=== PATIENT | male | born 1965 | race Caucasian/White ===

== ENCOUNTER 2023-08-22 10:39 | Emergency (ER) | payer OTHER, SELFPAY ==
[2023-08-22 10:52] VITALS: BP 139/68; PULSE 60; RESP 16; TEMP 36.3; O2SAT 100
--- NOTE | 2023-08-22 11:40 | ED.GENADULT ---
HPI - General Adult General Chief complaint: Abdominal Pain Stated complaint: Abdominal Irritation Source: patient, RN notes reviewed and old records reviewed Mode of arrival: ambulatory Limitations: no limitations History of Present Illness HPI narrative: 57-year-old male that presents to [facility] with complaint possible inguinal hernia. Patient states about 1.5 weeks ago was lifting a propane tanks and noted a bulge on right inguinal area. Patient states having slight discomfort at times, but denies pain. patient denies any other complaints at this time. MD complaint: hernia Onset (ago): week(s) (1.5) Location: abdomen Radiation: non-radiation Related Data Home Medications Medication Instructions Recorded Confirmed No Home Medications 08/22/23 08/22/23 Allergies Allergy/AdvReac Type Severity Reaction Status Date / Time No Known Allergies Allergy Verified 08/22/23 11:01 Review of Systems Review of Systems: All systems reviewed & are unremarkable except as noted in HPI and below Constitutional: Constitutional: Reports no additional constitutional complaints Eyes: Eyes: Reports no additional eye complaints ENT: Reports system reviewed and no additional complaints, except as documented Cardiovascular: Cardiovascular: Reports no additional cardiovascular complaints Respiratory: Respiratory: Reports no additional respiratory complaints Gastrointestinal: Gastrointestinal: Reports abdominal pain Comments: lower right Genitourinary: Genitourinary: Reports no additional male genitourinary complaints, Denies oliguria, Denies penile discharge and Denies testicular pain Integumentary/Breasts: Skin/Breast: Denies erythema, Denies rash and Denies skin ulcer Neurologic: Reports system reviewed and no additional complaints, except as documented PMFSH Past Medical History Medical History Lipoma of skin and subcutaneous tissue of trunk Mass of left chest wall Social History Social History Smoking status: Never smoker Alcohol intake: current Comments At the time of my signature, I reviewed and agree with the nursing past medical, surgical, social, and family history. There is no relevant family history pertinent to the patient complaint. Exam Const: General: cooperative, healthy appearing, no acute distress and well nourished Nutritional Appearance: well nourished Orientation/consciousness: patient oriented x3 Limitations: no limitations HENMT: Head: normal to inspection and normocephalic Ears: external ears normal, TM's normal bilaterally, mastoids normal and Abnormal EAC present Face/Nose/Sinus: normal facial exam Face and sinus: normal facial exam Mouth: Yes Normal oral and palatal mucosa present, Yes oropharynx normal and Yes moist mucous membranes Throat: posterior oropharynx normal, tonsils normal, uvula midline and no uvular edema Eyes: General: appearance normal, both eyes and all related structures Sclera: sclerae normal Pupils: Equal, round and reactive pupils present Resp: Effort & Inspection: normal respiratory effort, able to speak in complete sentences, no audible wheezes, no cough, no respiratory distress and no retractions Auscultation: clear to auscultation bilaterally, no crackles, no rales, no rhonchi and no wheezes Cardio: Rate: regular rate Rhythm: regular rhythm GI: GI Palp: Yes Soft to palpation, No Tenderness to palpation present (GI), No Guarding due to palpation present (GI), No Rigid due to palpation, Yes Hernia present other ( right inguinal, reducible, nontender, no erythema) 3-10 cm and No Rebound tenderness present Auscultation: normal bowel sounds Skin: General skin exam: normal color and no rashes or lesions noted Neuro: General: patient oriented x3 Cranial nerves: Yes Equal, round and reactive pupils present Psych: Appearance: grossly
== END 2023-08-22 11:50 | disposition home or self-care (01) ==
PROVIDERS: Emergency Provider Registered Nurse; PCP Family Medicine
DX: K40.90 Unilateral inguinal hernia, without obstruction or gangrene, not specified as recurrent (principal)
CPT/HCPCS: 99211; G0463

== ENCOUNTER 2023-09-29 07:58 | Outpatient (CLI) | payer OTHER, SELFPAY | END 2023-09-29 07:59 | disposition home or self-care (01) | LOC: ANHSURGERY 08:01 | PROVIDERS: PCP Family Medicine; Visit Provider Surgery | DX: Z01.818 Encounter for other preprocedural examination (principal); K40.90 Unilateral inguinal hernia, without obstruction or gangrene, not specified as recurrent | CPT/HCPCS: 36415; 86850; 86900; 86901 ==

== ENCOUNTER 2023-10-03 03:23 | Day surgery (SDC) | payer OTHER, SELFPAY ==
[2023-09-23 10:26] VITALS: BMI 22.8
--- NOTE | 2023-09-24 12:03 | SUR.PREOP ---
Report to the Outpatient Waiting Room, entrance under the green pavilion located off [facility], at time 8:30 on date 10/03/23. Planned Procedure Time: 10:30. Time changes happen often and if your time is changed the preop area will call you the afternoon before. - You and your visitor will be asked to self-screen and do not enter if you have any COVID symptoms. - A mask is optional within the hospital at this time. Patients may have clear liquids (water, carbonated beverages, clear teas, apple juice) until 3 hours prior to surgery (7:30) with a maximum of 20 ounces. - No food from midnight until time of surgery Take the following medications with a SIP of water the morning of surgery: N/A DO NOT STOP ANY OF YOUR OTHER PRESCRIPTION MEDICATIONS PRIOR TO SURGERY ?EXCEPT THE FOLLOWING Medications to discontinue per physician: N/A Date to take last dose: N/A Please no make-up, nail english, hairspray, perfume, deodorant, or body powder the day of surgery. No jewelry (including any body piercings) or valuables the day of surgery, leave them at home. Please take a shower or bath the night before, or the morning of, surgery with an antibacterial soap. Wear comfortable, loose fitting clothing. - Jewelry must be removed prior to entering the operating room. Rings and piercings that are not removed may be cut off. - The hospital will not accept responsibility for valuables. - Please leave all valuables, including medications, at home the day of surgery. If you are going home after surgery, a licensed ups driver must drive you home. - NO public transportation without another adult if you receive anesthesia. - We recommend that an adult stay with you for 24 hours following discharge. - We also recommend that you do not drive, make important decision, drink alcoholic beverages, or take any drugs that were not prescribed by your health care provider for at least 24 hours after your discharge time. Follow any additional instructions given to you from your surgeon. If you or anyone in your household have experienced Covid symptoms in the past week, please notify your surgeon or the nurse liaison at the phone number below for possible testing. Telephone instructions given to PT - RONAL BATES and asked if any additional questions and then verbalized understanding. Patient advised to call surgeon office or pre surgery nurse liaison [phone] if any additional questions.
[2023-10-03] VITALS (8 sets, daily range): BP systolic 132–156; BP diastolic 75–85; PULSE 64–97; RESP 13–18; TEMP 36.1–36.6; O2SAT 94–99
[2023-10-03] MEDS: KETOROLAC 15 MG/ML VIAL (*BKC) IV PUSH ×2 (12:00→14:45)
[2023-10-03] MEDS: LACTATED RINGERS 1,000 ML 30 ML IV CONT ×2 (12:00→15:20)
[2023-10-03] MEDS: ACETAMINOPHEN 500 MG TABLET 1000 MG PO (12:00)
--- NOTE | 2023-10-03 12:09 | WPDANESEPPF ---
Anes - Initial Pre Proc Eval Procedure: Operation Date: 10/03/23 13:00 Proposed Procedures p Robotic Assisted Laparoscopic Right Inguinal Hernia Repair with Mesh, Possible Left Inguinal Hernia Repair - Karthik Valencia MD Date/Time: 10/03/23 12:09 Surgeon: Karthik Valencia MD Pre Op Diagnosis: reducible right inguinal hernia Patient Data Age: 57 Gender: M Height: 1.75 m Weight: 70.4 kg Allergies Allergy/AdvReac Type Severity Reaction Status Date / Time No Known Allergies Allergy Verified 09/23/23 10:43 Home Medications Medication Instructions Recorded Confirmed Type No Home Medications 08/22/23 09/23/23 History Patient hx anesthesia problems: none Family hx anesthesia problems: none Results Review: All pre-operative results and documents have been reviewed as part of the pre-operative evaluation. 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 Informed Consent: The patient's anesthetic plan and its attendant risks and benefits were discussed with the patient/family/POA. Questions were solicited and answers provided to the satisfaction of the patient/family/POA.
--- NOTE | 2023-10-03 12:33 | PM.IMHP ---
H&P: HPI History of Present Illness Date/Time: 10/03/23 12:33 Chief Complaint: Right groin bulge Narrative: Mr. Blanco presents to the office at the request of Lor Coelho APRN for evaluation. ? He reports a two week history of bulging in his? groin.? Bulge is prominent with standing and provocative maneuvers, but reduces with lying down and with manual reduction.? No change in bowel habits or urinary difficulty.? No previous abdominal or inguinal surgeries. Review of Systems Review of Systems: The remainder of the review of systems to include constitutional, HEENT, cardiovascular, respiratory, GI, , integumentary, musculoskeletal, endocrine, immunologic, hematologic, psychiatric, and neurologic are all negative except for which is mentioned above in the HPI. 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 [employer] Spiritual care concerns: No Meds Home Medications and Allergies Home Medications Medication Instructions Recorded Confirmed Type No Home Medications 08/22/23 09/23/23 History Allergies Allergy/AdvReac Type Severity Reaction Status Date / Time No Known Allergies Allergy Verified 09/23/23 10:43 Vital Signs Vital Signs - 24 hr 10/03/23 12:00 Temperature 36.6 C Pulse Rate 64 Respiratory Rate 14 Blood Pressure 132/75 Pulse Oximetry 99 Oxygen Delivery Room Air Exam Const: General: comfortable and no acute distress HENMT: Ears: TM's normal bilaterally Face/Nose/Sinus: Normal nares present Mouth: Yes moist mucous membranes Eyes: General: appearance normal, both eyes and all related structures Sclera: sclerae normal Pupils: Equal, round and reactive pupils present EOM: EOMs intact bilaterally Neck: Neck: supple and no JVD Resp: Effort & Inspection: normal respiratory effort Auscultation: clear to auscultation bilaterally Cardio: Rate: regular rate Rhythm: regular rhythm GI: GI Palp: Yes Soft to palpation, No Firmness to palpation present (GI), No Tenderness to palpation present (GI), No Guarding due to palpation present (GI) and No Hernia present : Other: Easily palpable, reducible right inguinal hernia.? Possible small left inguinal hernia. bilateral descended testes without masses. Skin: General skin exam: normal color and no rashes or lesions noted Neuro: General: gait normal Speech: normal speech Motor exam (neuro): 5/5 motor strength present throughout Sensory Exam: normal sensation Extrem: General: normal to inspection Psych: Mental Status: mental status grossly normal Affect: normal affect Assessment and Plan Assessment and plan (1) Inguinal hernia without obstruction or gangrene: Qualifiers: Laterality: unilateral Recurrence: non-recurrent Qualified Code(s): K40.90 - Unilateral inguinal hernia, without obstruction or gangrene, not specified as recurrent Code(s): K40.90 - Unilateral inguinal hernia, without obstruction or gangrene, not specified as recurrent Status: Acute Assessment and Plan: Patient has a easily palpable, reducible right inguinal hernia with suggestion of possible small left inguinal hernia.? I've recommended proceeding with robotic assisted laparoscopic right inguinal hernia repair with mesh, possible left inguinal hernia repair to be performed in the OR under general anesthesia as an outpatient.? The surgery wa
--- NOTE | 2023-10-03 12:36 | WPDHPUPDATE1 ---
History and Physical Update Update Date/Time: 10/03/23 12:36 History and Physical has been reviewed, including an updated exam of the patient. There are NO changes in the patient's condition. Risks, benefits, and alternatives have been discussed and questions answered. Patient agrees to proceed with procedure.
[2023-10-03] MEDS: ceFAZolin 2 GM/D5W 50 ML 2 GM/50 ML BAG IVPB (13:04)
[2023-10-03] MEDS: LIDO 1%/EPINEPHRINE 1:100,000 50 ML VIAL 30 ML INFILTRATE (13:53)
--- NOTE | 2023-10-03 15:09 | W.PM.PROC2 ---
Procedure Note - Detailed Date of Procedure 10/03/23 Pre-op Diagnosis reducible right inguinal hernia Post-op Diagnosis Same (Reducible right indirect inguinal hernia) Procedure Performed Robotic assisted laparoscopic right inguinal hernia repair with Bard 3D mid weight mesh. Surgeon Karthik Valencia MD [facility] Anesthesia General Indications Patient is a healthy 57-year-old gentleman who presented with a right groin bulge which was enlarging over time becoming more painful. He had reducible right inguinal hernia. Presents now for repair of the right inguinal hernia via robotic assisted laparoscopic approach with mesh. Findings Moderate-sized reducible right inguinal hernia. Hernia was indirect. Description of Procedure After informed consent was obtained patient brought to the operating room was placed supine position and general endotracheal anesthesia was administered. The abdomen the bilateral groins were then prepped draped usual sterile fashion. A time-out was then performed correctly identifying the patient as well as procedure to be performed. Site marking was verified. He was given perioperative IV antibiotics. First started by entering the abdomen left upper quadrant utilizing a 10mm Optiview port. Once inside the abdomen insufflated to adequate pneumoperitoneum of 15mmHg of CO2. Looking into the lower abdomen and the pelvis I could see a indirect right inguinal hernia. There was no bowel incarcerated within the hernia. There was no evidence of left inguinal hernia. I then placed additional 8mm robotic trocar ports across the mid abdomen. The [employer] Joan robot was then brought to the patient's bedside and docked to the patient's right side. The robotic arms were then attached the robotic ports. Robotic instruments were then advanced into the abdomen under visualization. I then scrubbed out the procedure and sat down at the robotic console to perform the dissection robotically. I 1st started by making a preperitoneal flap starting just anterior medial to the right anterior superior iliac spine extends across the lower side of the right abdomen and divided the right side of the a median umbilical ligament. I continued dissection in the preperitoneal plane medially Danielle identified the right pubic tubercle and dissected more medially to I dissected out the pubic symphysis. I then dissected down into the space of Retzius for couple cm. The continued my dissection laterally identified the inferior epigastric vessels and seeing that this was an indirect inguinal hernia defect. I then dissected out the hernia sac from the internal ring and the hernia sac from the vas deferens and testicular vessels. These 2 structures were preserved without injury throughout the rest procedure. I dissected the hernia sac up proximally onto the psoas muscle so that be adequate landing space for the proximal edge of the mesh. I then chose a piece of Bard 3D mid weight mesh measuring 17cm in length by 12cm in width. It was configured for the right side. Is placed into the abdomen through the 10mm bedside kitchen assistant trocar port and then placed into the abdomen and into the right-sided dissected space in the pelvis. The medial portion of the mesh were then secured to the tissue around the pubic tubercle and pubic symphysis utilizing interrupted 2-0 Vicryl sutures. Laterally the mesh was secured to the muscle anterior medial to the right anterior suprailiac spine. A 3rd suture was then placed to approximate the mesh to the muscle at the potential direct space. The mesh covered the whole myopectineal orifice very nicely. I then proceeded to exclude the mesh from the intra-abdominal viscera by reapproximate the edges of the peritoneal flap. Done with a running 2-0 absorbable V lock suture. The hernia sac was tacked up to the closure of the peritoneum. I then checked and there was no injury to any of the bowel. All the needles were removed from
== END 2023-10-03 17:03 | disposition home or self-care (01) ==
PROVIDERS: PCP Family Medicine; Visit Provider Surgery
PROC: 8E0Y4CZ Robotic Assisted Procedure of Lower Extremity, Percutaneous Endoscopic Approach (ICD-10-PCS; CPT 49650; principal; 2023-10-03 13:00)
DX: K40.90 Unilateral inguinal hernia, without obstruction or gangrene, not specified as recurrent (principal)
CPT/HCPCS: 49650; S2900; 36415; 86850; 86900; 86901; A9270; C1781; J0690; J1100; J1170; J1885; J2250; J2405; J2704; J3010; J7120